=== PATIENT | female | born 1990 | race African-American/Black ===

== ENCOUNTER 2024-01-02 22:35 | Emergency (ER) | payer MEDICAID ==
[~2024-01-02] VITALS: Ht 167.6 cm; Wt 86.0 kg
[2024-01-02 22:47] VITALS: BP 131/87; PULSE 89; RESP 18; TEMP 98.7; O2SAT 100
== END 2024-01-03 02:16 | disposition left against medical advice (07) ==
LOC: ER 22:55
DX: R51.9 Headache, unspecified (principal); Z53.21 Procedure and treatment not carried out due to patient leaving prior to being seen by health care provider
CPT/HCPCS: 99281